=== PATIENT | female | born 1970 | race Caucasian/White ===

== ENCOUNTER → 2017-03-04 | Day surgery (SDC) | payer MEDICARE, OTHER ==
[~2017-03-04] MED LIST: HYDR-2768 PO; LACTATED RINGER'S 1000 ML INJ 1,000 ML ONE; LISI-360 PO; LIVA4TAB OR; PROPOFOL 500 MG/50 ML BTL IV ONE; SERO100T; VIST50CA PO; WELL150T PO
--- NOTE | 2017-03-04 09:06 | GIPROC ---
[facility] [address] [facility], [address] EGD PROCEDURE REPORT EXAM DATE: 03/04/2017 PATIENT NAME: Dewayne Muller MR #: [id number] BIRTHDATE: 1970 ATTENDING: Nba Solorzano MD ORDER #: [id number] BASKET PERSON: Dorcas STATUS: outpatient INDICATIONS: The patient is a 47 yr old female here for an EGD due to heartburn and history of esophageal reflux PROCEDURE PERFORMED: EGD w/ biopsy MEDICATIONS: None and Per Anesthesia. TOPICAL ANESTHETIC: none CONSENT: The patient understands the risks and benefits of the procedure and understands that these risks include, but are not limited to: sedation, allergic reaction, infection, perforation and/or bleeding. Alternative means of evaluation and treatment include, among others: physical exam, x-rays, and/or surgical intervention. The patient elects to proceed with this endoscopic procedure. medical equipment was checked for proper function. Hand hygiene and appropriate measures for infection prevention was taken. After the risks, benefits and alternatives of the procedure were thoroughly explained, Informed consent was verified, confirmed and timeout was successfully executed by the treatment team. The patient was anesthetized with anesthesia and the EC-[id number] ([id number]) endoscope was introduced through the mouth and advanced to the second portion of the duodenum. Mild gastritis biopsy for H.pylor. GE junction irregular z line, biopsy done x2. Retroflexed views revealed a hiatal hernia The gastroscope was then slowly withdrawn and removed. STOMACH: There was mild gastritis in the gastric antrum. ADVERSE EVENTS: There were no complications. IMPRESSIONS: 1. There was mild gastritis in the gastric antrum 2. Retroflexed views revealed a hiatal hernia RECOMMENDATIONS: 1. Await biopsy results. Biopsy results will not be ready for 7-10 days. If you don't hear from us in two weeks, call our office for biopsy results. 2. Continue PPI PATIENT CONDITION: fair DISPOSITION: Home REPEAT EXAM: NONE Nba Solorzano MD eSigned: Nba Solorzano MD 03/04/2017 9:05 AM cc: Wilmar Solorzano MD
== END | disposition home or self-care (01) ==
LOC: ESDC 07:09
PROVIDERS: ATTEND Surgery
DX: R12 Heartburn (principal); K21.9 Gastro-esophageal reflux disease without esophagitis; K29.70 Gastritis, unspecified, without bleeding; K22.9 Disease of esophagus, unspecified; K44.9 Diaphragmatic hernia without obstruction or gangrene
CPT/HCPCS: 00731; 43239; 88305; J3010; J7120

== ENCOUNTER 2017-04-23 14:45 | Emergency (ER) | payer MEDICARE, OTHER ==
[~2017-04-23 14:45] MED LIST changes: -LACTATED RINGER'S 1000 ML INJ 1,000 ML ONE; -PROPOFOL 500 MG/50 ML BTL IV ONE
[2017-04-23 15:00] VITALS: BP 101/58; PULSE 87; RESP 18; TEMP 98.3; O2SAT 97
[2017-04-23 17:34] VITALS: BP 112/55; PULSE 78; RESP 18; O2SAT 99
[2017-04-23] MEDS ORDERED: NIAC500T5 PO (17:45)
[2017-04-23] MEDS ORDERED: SITA1TAB2 PO (17:45)
[2017-04-23] MEDS ORDERED: LISI-515 PO (17:45)
[2017-04-23] MEDS ORDERED: ATOR40TA16 PO (17:45)
[2017-04-23] MEDS ORDERED: ALLO100T PO (17:45)
[2017-04-23] MEDS ORDERED: VITA80003 (17:45)
[2017-04-23] MEDS ORDERED: TRIL300T PO (17:45)
[2017-04-23] MEDS ORDERED: CHOL100025 CHEW (17:45)
[2017-04-23] MEDS ORDERED: MELO15TA20 PO (17:45)
[2017-04-23] MEDS ORDERED: MULTTAB67 PO (17:45)
[2017-04-23] MEDS ORDERED: LINA145C PO (17:45)
[2017-04-23] MEDS ORDERED: FISH1000 PO (17:45)
[2017-04-23] MEDS ORDERED: BIOTCAP PO (17:45)
[2017-04-23] MEDS ORDERED: CYMB30CA PO (17:45)
[2017-04-23] MEDS ORDERED: ASPI-516 CHEW (17:45)
[2017-04-23] MEDS ORDERED: METF500T PO (17:45)
[2017-04-23] MEDS ORDERED: L-THPOW PO (17:45)
[2017-04-23] MEDS ORDERED: GABA300C5 PO (17:45)
[2017-04-23 18:00] LABS: AUTOMATED NEUTROPHIL # 11.7 TH/MM3 (1.8-7.7); BASOPHIL # 0.1 TH/MM3 (0-0.2); BASOPHIL % 0.6 % (0.0-2.0); EOSINOPHIL # 0.1 TH/MM3 (0-0.4); EOSINOPHIL % 0.9 % (0.0-4.0); HEMATOCRIT 45.2 % (35.0-46.0); HEMOGLOBIN 15.2 GM/DL (11.6-15.3); LYMPHOCYTE # 3.2 TH/MM3 (1.0-4.8); MEAN CELL VOLUME 86.3 FL (80.0-100.0); MEAN CORPUSCULAR HEMOGLOBIN 29.1 PG (27.0-34.0); MEAN CORPUSCULAR HGB CONC 33.7 % (32.0-36.0); MEAN PLATELET VOLUME 9.4 FL (7.0-11.0); MONO % 6.2 % (0.0-8.0); NEUT % 72.3 % (16.0-70.0); PLATELET COUNT 367 TH/MM3 (150-450); RED BLOOD COUNT 5.24 MIL/MM3 (4.00-5.30); RED CELL DISTRIBUTION WIDTH 14.8 % (11.6-17.2); WHITE BLOOD COUNT 16.2 TH/MM3 (4.0-11.0)
[2017-04-23] MEDS ORDERED: SODIUM CHLORIDE 0.9% FLUSH 10 ML FLUSH IVF PRN (18:00)
--- NOTE | 2017-04-23 18:02 | PD ---
HPI Chief Complaint: Chest Pain Time Seen by Provider: 17:49 Travel History International Travel<30 days: No Contact w/Intl Traveler<30days: No Traveled to known affect area: No History of Present Illness HPI 47-year-old female with history of diabetes, hypertension, hyperlipidemia, presents emergency department complaining of midsternal chest pain with radiation to the left breast described as sharp and 5/10 as she was showering this afternoon at 1230p. Patient says The pain was constant until approximately 5p. Denies any palliative factors. States that she had associated shortness of breath. Denies nausea or vomiting. Since she was seen by her malt roaster, Dr. cardenas where she had a stress test for an upcoming gastric bypass surgery. Patient states that this was normal at this time. She denies any history of cardiac, pulmonary or kidney disease processes. Patient says that she is only concerned about her labs. Says that if her labs are normal she wants to go home. No family history of cardiac. PFSH Past Medical History Anxiety: Yes Depression: Yes (ADMITTED TO [facility] WITHOUT A PLAN) Cancer: No High Cholesterol: Yes Diabetes: Yes Patient Takes Glucophage: Yes (04/23/17 @0900) Endocrine: No Genitourinary: No Hypertension: Yes Immune Disorder: No Musculoskeletal: No Neurologic: No Psychiatric: Yes Reproductive: No Respiratory: No Sleep Apnea: Yes Triglycerides - High: Yes ?: Unknown LMP: february 2017 : 2 Para: 0 Miscarriage: 2 Dilation and Curettage (D&C): Yes Past Surgical History Surgical History: No Previous Surgery Social History Alcohol Use: Yes (SOCIALLY ) Tobacco Use: No Substance Use: No Allergies-Medications (Allergen,Severity, Reaction): Coded Allergies: cephalexin (Unverified Allergy, Mild, HIVES, 04/23/17) Reported Meds & Prescriptions Reported Meds & Active Scripts Active Reported Cymbalta DR (Duloxetine HCl) 30 Mg Capdr 30 Mg PO DAILY Vitamin A 8,000 Unit Capsule Linzess (Linaclotide) 145 Mcg Cap 145 Mcg PO DAILY Gabapentin 300 Mg Cap 300 Mg PO TID Biotin 5 Mg Cap 5 Mg PO DAILY Niacin 500 Mg Tab 500 Mg PO DAILY Allopurinol 100 Mg Tab 100 Mg PO DAILY Januvia (Sitagliptin Phosphate) 100 Mg Tab 100 Mg PO DAILY L-Thyroxine (Bulk) (Levothyroxine (Bulk)) Bulk Pow 100 Mcg PO DAILY Meloxicam 15 Mg Tab 15 Mg PO DAILY Lisinopril 20 Mg Tab 20 Mg PO DAILY Atorvastatin (Atorvastatin Calcium) 40 Mg Tab 40 Mg PO HS Multiple Vitamin 1 Tab 1 Tab PO DAILY Aspirin 81 Mg Chew 81 Mg CHEW DAILY Trileptal (Oxcarbazepine) 300 Mg Tab 300 Mg PO BID Metformin (Metformin HCl) 500 Mg Tab 500 Mg PO BIDPC Vitamin D3 (Cholecalciferol) 1,000 Unit Chew 2,000 Units CHEW DAILY Fish Oil ([place]-3 Fatty Acids) 340 Mg-1,000 Mg Cap PO HS Review of Systems Except as stated in HPI: all other systems reviewed are Neg Physical Exam Narrative GENERAL: Well-developed, well-nourished in no apparent distress, resting comfortably in bed SKIN: Focused skin assessment warm/dry. HEAD: Atraumatic. Normocephalic. NECK: Trachea midline. No JVD. CARDIOVASCULAR: Regular rate and rhythm. No murmur appreciated. RESPIRATORY: No accessory muscle use. Clear to auscultation. Breath sounds equal bilaterally. GASTROINTESTINAL: Abdomen soft, nondistended. Mild tenderness palpation of the mid epigastric region without masses or organomegaly MUSCULOSKELETAL: No obvious deformities. No clubbing. No cyanosis. No edema. NEUROLOGICAL: Awake and alert. No obvious cranial nerve deficits. Motor grossly within normal limits. Normal speech. PSYCHIATRIC: Appropriate mood and affect; insight and judgment normal. Data Data Last Documented VS Vital Signs Date Time Temp Pulse Resp B/P (MAP) Pulse Ox O2 Delivery O2 Flow Rate FiO2 04/23/17 19:10 04/23/17 18:10 75 15 98 04/23/17 18:06 Room Air 04/23/17 15:00 98.3 Orders Orders Electrocardiogram (04/23/17 14:53) Basic Metabolic Panel (Bmp) (04/23/17 17:49) Ckmb (Isoenzyme) Profile (04/23/17 17:49) Complete Blood Count With Diff (04/23/17 17:49) Magnesium (Mg) (04/23/17 17:49) Prothrombin Time / Inr (Pt) (04/23/17 17:49) Act Partial Throm Time (Ptt) (04/23/17 17:49) Troponin I (04/23/17 17:49) Ecg Monitoring (04/23/17 17:49) Bilateral Bp Monitoring (04/23/17 17:49) Iv Access Insert/Monitor (04/23/17 17:49) Oximetry (04/23/17 17:49) Oxygen Administration (04/23/17 17:49) Sodium Chloride 0.9% Flush (Ns Flush) (04/23/17 18:00) Chest, Pa & Lat (04/23/17 17:49) Comprehensive Metabolic Panel (04/23/17 18:10) Lipase (04/23/17 18:10) Ed Discharge Order (04/23/17 19:08) Labs Laboratory Tests Test 04/23/17 15:13 04/23/17 18:13 White Blood Count 16.2 TH/MM3 Red Blood Count 5.24 MIL/MM3 Hemoglobin 15.2 GM/DL Hematocrit 45.2 % Mean Corpuscular Volume 86.3 FL Mean Corpuscular Hemoglobin 29.1 PG Mean Corpuscular Hemoglobin Concent 33.7 % Red Cell Distribution Width 14.8 % Platelet Count 367 TH/MM3 Mean Platelet Volume 9.4 FL Neutrophils (%) (Auto) 72.3 % Lymphocytes (%) (Auto) 20.0 % Monocytes (%) (Auto) 6.2 % Eosinophils (%) (Auto) 0.9 % Basophils (%) (Auto) 0.6 % Neutrophils # (Auto) 11.7 TH/MM3 Lymphocytes # (Auto) 3.2 TH/MM3 Monocytes # (Auto) 1.0 TH/MM3 Eosinophils # (Auto) 0.1 TH/MM3 Basophils # (Auto) 0.1 TH/MM3 CBC Comment DIFF FINAL Differential Comment Prothrombin Time 9.7 SEC Prothromb Time International Ratio 1.0 RATIO Activated Partial Thromboplast Time 26.7 SEC Blood Urea Nitrogen 20 MG/DL 21 MG/DL Creatinine 1.26 MG/DL 1.07 MG/DL Random Glucose 80 MG/DL 91 MG/DL Calcium Level 10.1 MG/DL 9.7 MG/DL Magnesium Level 1.8 MG/DL Sodium Level 136 MEQ/L 135 MEQ/L Potassium Level 4.3 MEQ/L 4.7 MEQ/L Chloride Level 102 MEQ/L 102 MEQ/L Carbon Dioxide Level 21.5 MEQ/L 26.4 MEQ/L Anion Gap 13 MEQ/L 7 MEQ/L Estimat Glomerular Filtration Rate 45 ML/MIN 55 ML/MIN Total Creatine Kinase 96 U/L Troponin I LESS THAN 0.02 NG/ML Total Protein 7.4 GM/DL Albumin 3.7 GM/DL Alkaline Phosphatase 76 U/L Aspartate Amino Transf (AST/SGOT) 14 U/L Alanine Aminotransferase (ALT/SGPT) 32 U/L Total Bilirubin 0.3 MG/DL Lipase 184 U/L MDM Medical Decision Making Medical Screen Exam Complete: Yes Emergency Medical Condition: Yes Differential Diagnosis NSTEMI, STEMI, angina, unstable angina, generalized deconditioning Narrative Course 47-year-old female with history of diabetes, hypertension, hyperlipidemia, presents emergency department complaining of midsternal chest pain with radiation to the left breast described as sharp and 5/10 as she was showering this afternoon at 1230p. Patient says The pain was constant until approximately 5p. Denies any palliative factors. States that she had associated shortness of breath. Denies nausea or vomiting. Since she was seen by her malt roaster, Dr. cardenas where she had a stress test for an upcoming gastric bypass surgery. Patient states that this was normal at this time. She denies any history of cardiac, pulmonary or kidney disease processes. Patient says that she is only concerned about her labs. Says that if her labs are normal she wants to go home. Says that she was treated for an upper respiratory infection in February but this completely resolved. She denies cough or congestion. Vital signs stable. Labs and imaging studies ordered and sent EKG shows sinus rhythm without STEMI changes. Physical exam essentially unremarkable. Last Impressions Chest X-Ray 04/23/17 1129 Signed Impressions: Service Date/Time: Sunday, April 23, 2017 18:02 - CONCLUSION: No evidence of acute cardiopulmonary disease. Kd Montes De Oca MD Advised patient should be admitted to the chest pain center. After further discussion patient states that she has an appointment with Dr. cardenas on Wednesday. She insists that her pain is from her hiatal hernia. Says that she prefers to follow-up with him and avoid an admission. I discussed the case with my attending, Dr. Judd and he recommended pt needs to have very clear understanding of the risks versus benefits. Patient will not leave AMA but she is advised to return for worsening or persistent symptoms. She is welcome to return at any point if she changes her mind. She is discharged to follow up with her malt roaster. Diagnosis Primary Impression: Chest pain Qualified Codes: R07.89 - Other chest pain Referrals: Salesforce Administrator Additional Instructions: Follow-up with Dr. cardenas as discussed on Wednesday. You may return at any point for further evaluation of your chest pain. If you develop increased pain, shortness breath, nausea return to the emergency department. We discussed the risk versus benefits of leaving without further evaluation. Disposition: 01 DISCHARGE HOME Condition: Stable Shirley Peterson Apr 23, 2017 18:02
[2017-04-23 18:10] VITALS: BP 110/65; PULSE 75; RESP 15; O2SAT 98
[2017-04-23 18:13] LABS: PROTHROMBIN TIME - PATIENT 9.7 SEC (9.8-11.6)
--- NOTE | 2017-04-23 18:16 | RADRPT ---
EXAM DATE/TIME: 04/23/2017 18:02 [facility] COMPARISON: No previous studies available for comparison. INDICATIONS : Chest pain and shortness of breath. MEDICAL HISTORY : None. SURGICAL HISTORY : None. ENCOUNTER: Initial ACUITY: 1 day PAIN SCORE: 8/10 LOCATION: Left upper chest FINDINGS: PA and lateral views of the chest demonstrate the lungs to be symmetrically aerated without evidence of mass, infiltrate or effusion. The cardiomediastinal contours are unremarkable. Osseous structure s are intact. CONCLUSION: No evidence of acute cardiopulmonary disease. Kd Montes De Oca MD on April 23, 2017 at 18:13 Board Certified Radiologist. This report was verified electronically.
[2017-04-23 18:31] LABS: BICARBONATE 21.5 MEQ/L (21.0-32.0); BLOOD UREA NITROGEN 20 MG/DL (7-18); CALCIUM 10.1 MG/DL (8.5-10.1); CHLORIDE 102 MEQ/L (98-107); CREATININE 1.26 MG/DL (0.50-1.00); GLOMERULAR FILTRATION RATE 45 ML/MIN (>89); GLUCOSE,RANDOM 80 MG/DL (74-106); MAGNESIUM 1.8 MG/DL (1.5-2.5); SODIUM (NA) 136 MEQ/L (136-145)
[2017-04-23 18:35] LABS: TROPONIN I LESS THAN 0.02 NG/ML (0.02-0.05)
[2017-04-23 18:38] LABS: ALBUMIN 3.7 GM/DL (3.4-5.0); AST (GOT) 14 U/L (15-37); BICARBONATE 26.4 MEQ/L (21.0-32.0); BLOOD UREA NITROGEN 21 MG/DL (7-18); CALCIUM 9.7 MG/DL (8.5-10.1); CHLORIDE 102 MEQ/L (98-107); CREATININE 1.07 MG/DL (0.50-1.00); GLOMERULAR FILTRATION RATE 55 ML/MIN (>89); GLUCOSE,RANDOM 91 MG/DL (74-106); SODIUM (NA) 135 MEQ/L (136-145)
[2017-04-23 18:40] LABS: ALT (GPT) 32 U/L (10-53)
[2017-04-23 18:42] LABS: ALKALINE PHOSPHATASE 76 U/L (45-117); TOTAL BILIRUBIN ADULT 0.3 MG/DL (0.2-1.0); TOTAL PROTEIN 7.4 GM/DL (6.4-8.2)
--- NOTE | 2017-04-24 17:43 | EKG ---
Date Performed: 04/23/2017 Time Performed: 14:53:01 PTAGE: 47 years EKG: Sinus rhythm NORMAL ECG Since PREVIOUS TRACING , no significant change noted PREVIOUS TRACING DOCTOR: Anthony Rae Interpretating Date/Time 04/24/2017 17:42:27
== END 2017-04-23 19:10 | disposition home or self-care (01) ==
LOC: NEPC 14:45
DX: R07.89 Other chest pain (principal); F32.9 Major depressive disorder, single episode, unspecified; E78.00 Pure hypercholesterolemia, unspecified; E11.9 Type 2 diabetes mellitus without complications; I10 Essential (primary) hypertension; Z88.1 Allergy status to other antibiotic agents
CPT/HCPCS: 71046; 80048; 80053; 82550; 83690; 83735; 84484; 85025; 85610; 85730; 93005

== ENCOUNTER 2017-05-19 05:23 | Inpatient (IN) | payer MEDICARE, OTHER ==
[~2017-05-19] VITALS: Ht 172.7 cm; Wt 119.5 kg
[~2017-05-19 05:23] MED LIST changes: +ALLO100T PO; +ASPI-516 CHEW; +ATOR40TA16 PO; +BIOTCAP PO; +CHOL100025 CHEW; +CYMB30CA PO; +DULO20 PO; +FISH1000 PO; -HYDR-2768 PO; +L-THPOW PO; +LINA145C PO; -LISI-360 PO; +LISI-515 PO; -LIVA4TAB OR; +MELO15TA20 PO; +METF500T PO; +MULTTAB67 PO; +NIAC500T5 PO; -SERO100T; +SITA1TAB2 PO; +TRIL300T PO; -VIST50CA PO; +VITA80003 PO; -WELL150T PO
[2017-05-19] MEDS ORDERED: LACTATED RINGER'S 1000 ML IV PRN (06:45)
[2017-05-19] MEDS ORDERED: CHLORHEXIDINE GLUCONATE 2 % 1 PACK (2 CLOTHS) TOPICAL PRN (06:45)
[2017-05-19] MEDS ORDERED: METOPROLOL TARTRATE 25 MG TAB PO PRN (06:45)
[2017-05-19] MEDS ORDERED: ONDANSETRON HCL 4 MG/2 ML VIAL IV PUSH SCH (06:45)
[2017-05-19] MEDS ORDERED: VANCOMYCIN 1,500 MG/NS 500 ML (for 85-99 kg) IV SCH ×2 (06:45)
[2017-05-19] MEDS ORDERED: metroNIDAZOLE 500 MG INJ 100 ML IV SCH (06:45)
[2017-05-19] MEDS ORDERED: ACETAMINOPHEN 1000 MG/100 ML 100 ML IV SCH (06:45)
[2017-05-19] MEDS ORDERED: SODIUM CHLORID 0.9% 500 ML IV PRN (06:45)
[2017-05-19] MEDS ORDERED: SCOPOLAMINE 1.5 MG PATCH T-DERMAL SCH (06:45)
[2017-05-19] MEDS ORDERED: POVIDONE IODINE 5% (ANTISEPSIS KIT) 4 APPLICATIONS EACH NARE PRN (06:45)
[2017-05-19] MEDS ORDERED: APREPITANT 40 MG CAP PO SCH (06:45)
[2017-05-19] MEDS ORDERED: BUPIVACAINE/EPINEPHRINE 0.25% 50 ML VIAL ONE (07:02)
[2017-05-19] MEDS ORDERED: FLAV3.7O (07:43)
[2017-05-19] MEDS ORDERED: CINN500C2 PO ×2 (07:43)
[2017-05-19] MEDS ORDERED: PROT40TA PO (07:43)
[2017-05-19] MEDS ORDERED: diphenhydrAMINE HCL ELIXIR 12.5 MG/5 ML CUP PO PRN (10:15)
[2017-05-19] MEDS ORDERED: SODIUM CHLORIDE 0.9% FLUSH 10 ML FLUSH IV FLUSH PRN (10:15)
[2017-05-19] MEDS ORDERED: diphenhydrAMINE HCL 50 MG/ML VIAL IV PUSH PRN (10:15)
[2017-05-19] MEDS ORDERED: NALOXONE HCL 0.4 MG/ML AMP IV PUSH PRN (10:15)
[2017-05-19] MEDS ORDERED: ACETAMINOPHEN 325MG/HYDROcodone 7.5MG/15ML UDC PO PRN ×2 (10:15)
[2017-05-19] MEDS ORDERED: MORPHINE SULFATE 30 MG/30 ML PCA IV SCH (10:15)
[2017-05-19] MEDS ORDERED: DEXTROSE 50% IN WATER 50 ML VIAL(D50) IV PUSH PRN (10:15)
[2017-05-19] MEDS ORDERED: ENALAPRILAT 1.25 MG/ML VIAL IV PUSH PRN (10:15)
[2017-05-19] MEDS ORDERED: GLUCAGON 1 MG/ML VIAL OTHER PRN (10:15)
[2017-05-19] MEDS ORDERED: ONDANSETRON HCL 4 MG/2 ML VIAL IV PUSH PRN (10:15)
[2017-05-19] MEDS ORDERED: Post-op Orders (for Pharmacy) OTHER ONE (10:15)
[2017-05-19] MEDS ORDERED: DO NOT ADM ANY ANTICOAGULANT DRUGS PRN (10:26)
[2017-05-19] MEDS ORDERED: MIDAZOLAM HCL 2 MG/2 ML VIAL ONE (10:30)
--- NOTE | 2017-05-19 10:33 | MP ---
cc: Wilmar Denney MD DATE OF OPERATION: 05/19/2017 DATE OF : 1970 DATE OF OPERATION: 05/19/2017. PREOPERATIVE DIAGNOSIS: Morbid obesity with a BMI of 40, complicated by essential hypertension, type 2 diabetes, hypercholesterolemia. POSTOPERATIVE DIAGNOSES: 1. Morbid obesity with a BMI of 40, complicated by essential hypertension, type 2 diabetes, hypercholesterolemia. 2. Right hiatal hernia. PROCEDURE: 1. Laparoscopic Bao-en-Y gastric bypass, 100 cm Bao limb antecolic antegastric. 2. Laparoscopic repair of hiatal hernia. SURGEON: Wilmar Denney MD ANESTHESIA: General endotracheal anesthesia. ESTIMATED BLOOD LOSS: Scant. FINDINGS: 1. Fatty liver. 2. Moderate-sized hiatal hernia. SPECIMENS: None. COMPLICATIONS: None. OPERATIVE PROCEDURE: The patient was given prophylactic antibiotic in pre-op holding. She was taken to the operating room and placed on the operating table in supine position. Bilateral sequential inflation devices were placed on the lower extremities. General anesthesia was instituted. A Broussard catheter was placed. The abdomen was prepped and draped in a sterile fashion. The supraumbilical region was anesthetized with 0.5% Marcaine with epinephrine approximately three fingerbreadths above the umbilicus. A skin incision was made to the left of the umbilicus. A 12 mm Optiview port was placed under direct vision. A pneumoperitoneum was created. Under direct vision one 5 mm right upper quadrant port, one 12 mm right upper quadrant port, as well as one 12 mm left upper quadrant and two 5 mm left upper quadrant ports were placed. Prior to placement of all ports the skin and peritoneum was anesthetized with 0.5% Marcaine with epinephrine. The patient was placed in reverse Trendelenburg position. A Bruna-Flex retractor was placed and the liver was retracted. The gastroesophageal junction was identified. The angle of His was taken down. A moderate-sized hiatal hernia was identified. The left crura of the diaphragm was dissected as well as the right crura. The GE junction was mobilized into the abdominal cavity, the hernia sac was excised. The jarrell of the diaphragm was approximated with 0 silk suture in a [id number] manner. The lesser sac was entered on the lesser curvature approximately 5 cm distal to the gastroesophageal junction. The stomach was divided in this region with an Endo BROOK 3.5 mm load. A gastric pouch was created angled towards the angle of His using an additional three firings of the Endo BROOK 3.5 mm load. A 30-40 mL pouch was created. The staple line of the gastric remnant was covered with omentum. Attention was then focused on the gastrocolic ligament, and this was opened widely using the Harmonic scalpel. The transverse mesocolon was identified and was opened using the Harmonic scalpel creating a Y-defect. The ligament of Treitz was identified and brought into view. A point 50 cm distal to the ligament of Treitz was identified and the small bowel was transected in this region. The distal segment was run for a distance of 100 cm. At this point using the biliopancreatic limb an enterostomy was created with an Endo BROOK vascular load. This defect was closed with 2-0 Vicryl running in two layers. The proximal staple line was then brought up into the upper abdomen. An enterotomy was created. A gastrotomy was created. A gastrojejunostomy was created with an Endo BROOK 3.5 mm load creating a stoma of approximately 2 cm. This defect was closed in two layers using 2-0 Vicryl. Prior to placement of the second wave the anastomosis was tested with methylene blue. There was leakage of methylene blue along the suture lines; this was reinforced with a second wave of running 2-0 Vicryl with no further leak. Tisseel was then placed over the anastomosis. A 10 mm flat Gurmeet-Gaines drain was then placed posterior to the gastrojejunal anastomosis as well as the jejunostomy. The upper abdomen was irrigated with saline. The liver retractor was then removed. The pneumoperitoneum was released. All ports were removed. The LITO was secured to the abdominal wall using 2-0 silk. All skin incisions were closed with 4-0 PDS. The abdomen was cleaned. A sterile dressing was placed. The patient was awakened and taken to the recovery room stable. MD MIKE Acosta/JODI , 10:18 AM , 10:31 AM
[2017-05-19] MEDS ORDERED: *morphine SULFATE 4 MG/ML PERIprocedure ONLY ONE (10:37)
[2017-05-19] MEDS ORDERED: *MEPERIDINE 25 MG INJ VIAL PERIprocedural Use ONLY ONE (10:40)
[2017-05-19] MEDS: 1/2 NS + KCL 20 MEQ INJ 1,000 ML IV SCH ×2 (11:43→17:44)
[2017-05-19] MEDS: RESP: ALBUTEROL 2.5 MG/3 ML NEB (SCH) INH ×3 (11:56→20:07)
[2017-05-19] MEDS: METOCLOPRAMIDE HCL 10 MG/2 ML VIAL IV PUSH SCH ×2 (11:56→17:42)
[2017-05-19] MEDS ORDERED: LACTATED RINGER'S 1000 ML INJ 1,000 ML IV ONE (12:00)
[2017-05-19] MEDS ORDERED: LIDOCAINE HCL 1% PF 5 ML SYRINGE OTHER ONE (12:00)
[2017-05-19] MEDS ORDERED: NEOSTIGMINE 5 MG/5 ML SYRINGE IV PUSH ONE (12:00)
[2017-05-19] MEDS ORDERED: DEXAMETHASONE SOD PHOS 4 MG/ML VIAL IV ONE (12:00)
[2017-05-19] MEDS: INSULIN NovoLIN REGULAR SUPPLEMENTAL SCALE SQ SCH ×3 (12:00→21:00)
[2017-05-19] MEDS ORDERED: ROCURONIUM INJ 50 MG/5 ML SYRINGE IV PUSH ONE (12:00)
[2017-05-19] MEDS ORDERED: PROPOFOL 200 MG/20 ML AMP IV ONE (12:00)
[2017-05-19] MEDS ORDERED: ONDANSETRON HCL 4 MG/2 ML VIAL IV ONE (12:00)
[2017-05-19] MEDS ORDERED: GLYCOPYRROLATE 1 MG/5 ML SYRINGE IV PUSH ONE (12:00)
[2017-05-19] MEDS: ACETAMINOPHEN 1000 MG/100 ML 100 ML IV SCH ×2 (12:56→18:30)
[2017-05-19] MEDS: PCA - TOTAL MG MORPHINE DELIVERED PER SHIFT SCH ×2 (14:00→21:24)
[2017-05-19] MEDS: ENOXAPARIN SODIUM 40 MG/0.4 ML SYRINGE SQ SCH (14:37)
[2017-05-19 15:45] VITALS: O2SAT 92
[2017-05-19 16:00] VITALS: BP 111/62; PULSE 88; RESP 16; TEMP 97.6; O2SAT 91
[2017-05-19] MEDS: metroNIDAZOLE 500 MG INJ 100 ML IV SCH (16:50)
[2017-05-19 20:00] VITALS: BP 115/64; PULSE 91; RESP 19; TEMP 98; O2SAT 95
[2017-05-19 20:07] VITALS: O2SAT 95
[2017-05-19] MEDS: SODIUM CHLORIDE 0.9% FLUSH 10 ML FLUSH IV FLUSH SCH (21:00)
[2017-05-19] MEDS: VANCOMYCIN INJ 1,000 MG in SODIUM CHLOR 0.9% 250 ML INJ 250 ML IV SCH (21:30)
[2017-05-20] VITALS: BP 108/68; PULSE 86; RESP 19; TEMP 97.2; O2SAT 95
[2017-05-20] MEDS: metroNIDAZOLE 500 MG INJ 100 ML IV SCH ×2 (00:06→08:49)
[2017-05-20] MEDS: METOCLOPRAMIDE HCL 10 MG/2 ML VIAL IV PUSH SCH ×2 (00:06→05:42)
[2017-05-20] MEDS: ACETAMINOPHEN 1000 MG/100 ML 100 ML IV SCH (01:08)
[2017-05-20] MEDS: RESP: ALBUTEROL 2.5 MG/3 ML NEB (SCH) INH ×5 (03:17→16:34)
[2017-05-20 04:00] VITALS: BP 109/55; PULSE 77; RESP 19; TEMP 98.6; O2SAT 93
[2017-05-20] MEDS: 1/2 NS + KCL 20 MEQ INJ 1,000 ML IV SCH ×2 (05:42→13:22)
[2017-05-20] MEDS: PCA - TOTAL MG MORPHINE DELIVERED PER SHIFT SCH (05:43)
[2017-05-20 06:03] LABS: BASOPHIL % 0.2 % (0.0-2.0); EOSINOPHIL % 0.1 % (0.0-4.0); HEMATOCRIT 36.9 % (35.0-46.0); HEMOGLOBIN 12.1 GM/DL (11.6-15.3); LYMPH % 17.9 % (9.0-44.0); LYMPHOCYTE # 2.1 TH/MM3 (1.0-4.8); MEAN CELL VOLUME 87.5 FL (80.0-100.0); MEAN CORPUSCULAR HEMOGLOBIN 28.7 PG (27.0-34.0); MEAN CORPUSCULAR HGB CONC 32.8 % (32.0-36.0); MEAN PLATELET VOLUME 9.2 FL (7.0-11.0); MONO % 6.2 % (0.0-8.0); MONOCYTE # 0.7 TH/MM3 (0-0.9); NEUT % 75.6 % (16.0-70.0); PLATELET COUNT 263 TH/MM3 (150-450); RED BLOOD COUNT 4.21 MIL/MM3 (4.00-5.30); RED CELL DISTRIBUTION WIDTH 15.2 % (11.6-17.2); WHITE BLOOD COUNT 11.9 TH/MM3 (4.0-11.0)
[2017-05-20 06:35] LABS: BICARBONATE 27.6 MEQ/L (21.0-32.0); CALCIUM 8.3 MG/DL (8.5-10.1); CREATININE 0.65 MG/DL (0.50-1.00); MAGNESIUM 1.8 MG/DL (1.5-2.5)
[2017-05-20 08:00] VITALS: BP 126/63; PULSE 78; RESP 16; TEMP 97.9; O2SAT 91
[2017-05-20] MEDS: INSULIN NovoLIN REGULAR SUPPLEMENTAL SCALE SQ SCH ×3 (08:00→16:27)
[2017-05-20 08:34] VITALS: O2SAT 92
[2017-05-20] MEDS: VANCOMYCIN INJ 1,000 MG in SODIUM CHLOR 0.9% 250 ML INJ 250 ML IV SCH (08:49)
[2017-05-20] MEDS: PANTOPRAZOLE SOD 40 MG DELAYED RELEASE TAB PO SCH ×2 (08:50→08:55)
[2017-05-20] MEDS: SODIUM CHLORIDE 0.9% FLUSH 10 ML FLUSH IV FLUSH SCH (08:50)
[2017-05-20] MEDS ORDERED: DULoxetine HCl DR 30 MG CAP PO SCH (10:00)
[2017-05-20] MEDS ORDERED: LEVOTHYROXINE SODIUM 100 MCG TAB PO SCH (10:00)
[2017-05-20] MEDS ORDERED: OXcarbazepine 300 MG TAB PO SCH (10:00)
[2017-05-20 12:00] VITALS: BP 128/76; PULSE 87; RESP 17; TEMP 98.3; O2SAT 90
[2017-05-20] MEDS ORDERED: METOCLOPRAMIDE HCL 10 MG/2 ML VIAL IV PUSH PRN (12:00)
[2017-05-20] MEDS: ENOXAPARIN SODIUM 40 MG/0.4 ML SYRINGE SQ SCH (13:22)
[2017-05-20 16:00] VITALS: BP 108/65; PULSE 84; RESP 16; TEMP 98.2; O2SAT 92
--- NOTE | 2017-05-20 16:09 | HHI.PR ---
Subjective Subjective Notes Doing well Excellent pain control Tolerating PO fluids Denies GI complaints Objective Vitals/I&O Vital Signs Date Time Temp Pulse Resp B/P (MAP) Pulse Ox O2 Delivery O2 Flow Rate FiO2 05/20/17 12:00 98.3 87 17 128/76 (93) 90 05/20/17 08:34 21 05/19/17 12:15 Nasal Cannula 3 Labs Laboratory Tests Test 05/20/17 04:22 White Blood Count 11.9 Red Blood Count 4.21 Hemoglobin 12.1 Hematocrit 36.9 Mean Corpuscular Volume 87.5 Mean Corpuscular Hemoglobin 28.7 Mean Corpuscular Hemoglobin Concent 32.8 Red Cell Distribution Width 15.2 Platelet Count 263 Mean Platelet Volume 9.2 Neutrophils (%) (Auto) 75.6 Lymphocytes (%) (Auto) 17.9 Monocytes (%) (Auto) 6.2 Eosinophils (%) (Auto) 0.1 Basophils (%) (Auto) 0.2 Neutrophils # (Auto) 9.0 Lymphocytes # (Auto) 2.1 Monocytes # (Auto) 0.7 Eosinophils # (Auto) 0.0 Basophils # (Auto) 0.0 CBC Comment DIFF FINAL Differential Comment Blood Urea Nitrogen 9 Creatinine 0.65 Random Glucose 89 Calcium Level 8.3 Magnesium Level 1.8 Sodium Level 141 Potassium Level 4.2 Chloride Level 108 Carbon Dioxide Level 27.6 Anion Gap 5 Estimat Glomerular Filtration Rate 97 Cardiovascular: Regular Lungs: Clear Abdomen: Post-op tenderness Extremities: Perfused Wound Wound : Wound Location: Abdomen Appearance: Clean & Dry A/P Assessment and Plan 47yo F POD#1 laparoscopic RNY -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
[2017-05-22] MEDS ORDERED: DULoxetine HCl DR 20 MG CAP PO SCH (09:00)
== END 2017-05-20 18:17 | disposition home or self-care (01) | DRG 621 ==
LOC: HSDI 05:23 → N07B 12:35
PROVIDERS: ADMIT Surgery; ATTEND Surgery
PROC: 0BQT4ZZ Repair Diaphragm, Percutaneous Endoscopic Approach (ICD-10-PCS; 2017-05-19)
PROC: 0T9B70Z Drainage of Bladder with Drainage Device, Via Natural or Artificial Opening (ICD-10-PCS; 2017-05-19)
PROC: 3E1M38Z Irrigation of Peritoneal Cavity using Irrigating Substance, Percutaneous Approach (ICD-10-PCS; 2017-05-19)
PROC: 0D164ZA Bypass Stomach to Jejunum, Percutaneous Endoscopic Approach (ICD-10-PCS; principal; 2017-05-19 08:25)
DX: E66.01 Morbid (severe) obesity due to excess calories (principal); K76.0 Fatty (change of) liver, not elsewhere classified; M50.20 Other cervical disc displacement, unspecified cervical region; I10 Essential (primary) hypertension; E11.9 Type 2 diabetes mellitus without complications; Z68.41 Body mass index [BMI] 40.0-44.9, adult; E78.00 Pure hypercholesterolemia, unspecified; K44.9 Diaphragmatic hernia without obstruction or gangrene; K22.70 Barrett's esophagus without dysplasia; M10.9 Gout, unspecified; E03.9 Hypothyroidism, unspecified; G47.30 Sleep apnea, unspecified; Z87.891 Personal history of nicotine dependence
CPT/HCPCS: 80048; 82948; 83735; 85025; 94150; 94640; 94664; J0131; J1100; J1650; J2175; J2250; J2270; J2405; J2710; J2765; J3010; J3370; J7040; J7050; J7120; J7613; J8501

== ENCOUNTER 2017-05-30 10:14 | Inpatient (IN) | payer MEDICARE, OTHER ==
[~2017-05-30] VITALS: Ht 172.7 cm; Wt 110.0 kg
[~2017-05-30 10:14] MED LIST changes: -ASPI-516 CHEW; -BIOTCAP PO; -CHOL100025 CHEW; -MELO15TA20 PO; -METF500T PO; -MULTTAB67 PO; +PROT40TA PO; -SITA1TAB2 PO; -VITA80003 PO
[2017-05-30 10:30] VITALS: BP 119/72; PULSE 77; RESP 18; TEMP 98.1; O2SAT 99
[2017-05-30] MEDS ORDERED: HYDROmorphone HCL PF 1 MG/ML VIAL IV PUSH ONE (10:30)
--- NOTE | 2017-05-30 10:57 | PD ---
HPI Chief Complaint: Abdominal Pain Time Seen by Provider: 10:21 Travel History International Travel<30 days: No Contact w/Intl Traveler<30days: No Traveled to known affect area: No History of Present Illness HPI 47-year-old female presents emergency department as a transfer for possible small bowel obstructions in the postoperative period from a gastric bypass by Dr. Nguyen performed on 05/19/2017. She received several doses of morphine and Zofran prior to her transfer from [facility], unfortunately only read is available from her CAT scan is there discopathy or was malfunctioning. The patient complains of abdominal cramping throughout her abdomen, she states he got fairly severe last night accompanied with some nonbilious nonbloody emesis. She still states that she is significantly uncomfortable. No chest pain no shortness of breath no diarrhea no constipation. No fevers. PFSH Past Medical History Anxiety: Yes Depression: Yes (ADMITTED TO [place] [facility] WITHOUT A PLAN) Cancer: No Cardiovascular Problems: No High Cholesterol: Yes Diabetes: Yes (NIDDM) Patient Takes Glucophage: No Endocrine: No Gastrointestinal Disorders: Yes (GERD) Genitourinary: No Hiatal Hernia: Yes Hypertension: Yes Immune Disorder: Yes (GOUT) Implanted Vascular Access Dvce: No Medical other: Yes (ELLISON'S ESOPHAGUS) Musculoskeletal: Yes (OA IN BACK) Neurologic: Yes (3 HERNIATED DISK, SCIATICA) Psychiatric: Yes (BIPOLAR, ANXIETY AND DEPRESSION) Reproductive: No Respiratory: Yes (SLEEP APNEA USES CPAP) Sleep Apnea: Yes Thyroid Disease: Yes (HYPO) Triglycerides - High: Yes ?: Not : 2 Para: 0 Miscarriage: 2 Dilation and Curettage (D&C): Yes Past Surgical History Abdominal Surgery: No AICD: No Body Medical Devices: NONE Ear Surgery: No Endocrine Surgery: No Eye Surgery: No Genitourinary Surgery: No Gynecologic Surgery: Yes (D&C) Joint Replacement: No Neurologic Surgery: No Oral Surgery: No Pacemaker: No Thoracic Surgery: No Other Surgery: Yes Social History Alcohol Use: Yes (SOCIALLY ) Tobacco Use: No Substance Use: No Allergies-Medications (Allergen,Severity, Reaction): Coded Allergies: cephalexin (Unverified Allergy, Mild, HIVES, 05/19/17) Reported Meds & Prescriptions Reported Meds & Active Scripts Active Reported Protonix (Pantoprazole Sodium) 40 Mg Tab 40 Mg PO DAILY Cymbalta DR (Duloxetine HCl) 20 Mg Capdr 20 Mg PO EVERY OTHER DAY Cymbalta DR (Duloxetine HCl) 30 Mg Capdr 30 Mg PO DAILY Linzess (Linaclotide) 145 Mcg Cap 145 Mcg PO DAILY Niacin 500 Mg Tab 500 Mg PO DAILY Allopurinol 100 Mg Tab 100 Mg PO DAILY L-Thyroxine (Bulk) (Levothyroxine (Bulk)) Bulk Pow 100 Mcg PO DAILY Lisinopril 20 Mg Tab 20 Mg PO DAILY Atorvastatin (Atorvastatin Calcium) 40 Mg Tab 40 Mg PO HS Trileptal (Oxcarbazepine) 300 Mg Tab 300 Mg PO BID Fish Oil ([place]-3 Fatty Acids) 340 Mg-1,000 Mg Cap 1 Cap PO HS Review of Systems Except as stated in HPI: all other systems reviewed are Neg Physical Exam Narrative GENERAL: Well-developed overweight female appears uncomfortable. SKIN: Focused skin assessment warm/dry. HEAD: Atraumatic. Normocephalic. EYES: Pupils equal and round. No scleral icterus. No injection or drainage. ENT: No nasal bleeding or discharge. Mucous membranes pink and moist. NECK: Trachea midline. No JVD. CARDIOVASCULAR: Regular rate and rhythm. No murmur appreciated. RESPIRATORY: No accessory muscle use. Clear to auscultation. Breath sounds equal bilaterally. GASTROINTESTINAL: Abdomen soft, moderately tender without any rebound or percussive symptoms, moderately distended, tympanic to percussion. MUSCULOSKELETAL: No obvious deformities. No clubbing. No cyanosis. No edema. NEUROLOGICAL: Awake and alert. No obvious cranial nerve deficits. Motor grossly within normal limits. Normal speech. PSYCHIATRIC: Appropriate mood and affect; insight and judgment normal. Data Data Last Documented VS Vital Signs Date Time Temp Pulse Resp B/P (MAP) Pulse Ox O2 Delivery O2 Flow Rate FiO2 05/30/17 10:34 18 05/30/17 10:30 98.1 77 119/72 (88) 99 Orders Orders Consult General Surgery (05/30/17 ) Hydromorphone Pf Inj (Dilaudid Pf Inj) (05/30/17 10:30) (Hub Use Only)Inp Phy Cons/Ref (05/30/17 ) Hydromorphone Pf Inj (Dilaudid Pf Inj) (05/30/17 11:00) Diet Npo (05/30/17 Lunch) Sodium Chlor 0.9% 1000 Ml Inj (Ns 1000 M (05/30/17 11:00) Admit Order (Ed Use Only) (05/30/17 ) Clindamycin 600 Mg/Ns Premix (Cleocin 60 (05/30/17 11:45) MDM Medical Decision Making Medical Screen Exam Complete: Yes Emergency Medical Condition: Yes Differential Diagnosis Bowel obstruction, stricture, postoperative pain, constipation. Narrative Course Patient room to the emergency department, will maintain n.p.o. status, normal saline at 100 cc an hour, blood work reviewed from outside facility CBC fairly unremarkable, BMP fairly unremarkable. CAT scan report does show stricture in the jejunum proximal to the anastomosis site according to the read. Again the CT imaging is not readily available to me. Dr. Nguyen is arrived and after short conversation with [facility] trying to review the images he is examined the patient is sided to take the operating room. Patient did receive an additional dose of Dilaudid 1 mg IV by me. Further management by Dr. Nguyen at this point Diagnosis Primary Impression: SBO (small bowel obstruction) Admitting Information Admitting Physician Requests: Admit Condition: Soy Kingsley MD May 30, 2017 10:57
[2017-05-30] MEDS ORDERED: SODIUM CHLOR 0.9% 1000 ML INJ 1,000 ML IV SCH (11:00)
[2017-05-30] MEDS ORDERED: HYDROmorphone HCL PF 2 MG/ML VIAL IV PUSH ONE (11:00)
[2017-05-30] MEDS ORDERED: CLINDAMYCIN 600 MG/NS PREMIX 50 ML IV ONE (11:45)
[2017-05-30] MEDS ORDERED: BUPIVACAINE/EPINEPHRINE 0.25% 50 ML VIAL ONE (11:47)
[2017-05-30] MEDS ORDERED: METHYLENE BLUE 10 MG/ML VIAL ONE (11:47)
[2017-05-30] MEDS ORDERED: SUCCINYLCHOLINE CHLORIDE 100 MG/5 ML SYRINGE IV PUSH ONE (12:00)
[2017-05-30] MEDS ORDERED: PROPOFOL 200 MG/20 ML AMP IV ONE (12:00)
[2017-05-30] MEDS ORDERED: GLYCOPYRROLATE 1 MG/5 ML SYRINGE IV PUSH ONE (12:00)
[2017-05-30] MEDS ORDERED: LACTATED RINGER'S 1000 ML INJ 1,000 ML IV ONE (12:00)
[2017-05-30] MEDS ORDERED: DEXAMETHASONE SOD PHOS 4 MG/ML VIAL IV ONE (12:00)
[2017-05-30] MEDS ORDERED: ROCURONIUM INJ 50 MG/5 ML SYRINGE IV PUSH ONE (12:00)
[2017-05-30] MEDS ORDERED: CLINDAMYCIN INJ 600 MG in SODIUM CHLORIDE 0.9% INJ 100 ML IV ONE (12:00)
[2017-05-30] MEDS ORDERED: NORMOSOL R INJ 1,000 ML IV ONE (12:00)
[2017-05-30] MEDS ORDERED: LIDOCAINE HCL 1% PF 5 ML SYRINGE OTHER ONE (12:00)
[2017-05-30] MEDS ORDERED: ONDANSETRON HCL 4 MG/2 ML VIAL IV ONE (12:00)
[2017-05-30] MEDS ORDERED: NEOSTIGMINE 5 MG/5 ML SYRINGE IV PUSH ONE (12:00)
[2017-05-30] MEDS ORDERED: ePHEDrine/NS 25 MG/5 ML SYRINGE IV ONE (12:00)
[2017-05-30] MEDS ORDERED: OXYMETAZOLINE HCL 0.05% 15 ML NASAL SPRAY ONE (12:57)
[2017-05-30] MEDS ORDERED: ONDANSETRON HCL 4 MG/2 ML VIAL IV PUSH PRN (14:15)
[2017-05-30] MEDS ORDERED: Post-op Orders (for Pharmacy) XX ONE (14:15)
[2017-05-30] MEDS ORDERED: NALOXONE HCL 0.4 MG/ML AMP IV PUSH PRN (14:15)
[2017-05-30] MEDS ORDERED: ACETAMINOPHEN 325MG/HYDROcodone 7.5MG/15ML UDC PO PRN (14:15)
[2017-05-30] MEDS ORDERED: SODIUM CHLORIDE 0.9% FLUSH 10 ML FLUSH IV FLUSH PRN (14:15)
[2017-05-30] MEDS ORDERED: MAGNESIUM HYDROXIDE SUSP 30 ML CUP PO PRN (14:15)
[2017-05-30] MEDS: SODIUM CHLOR 0.9% 1000 ML INJ 1,000 ML IV SCH (14:30)
[2017-05-30] MEDS ORDERED: MORPHINE SULFATE 4 MG/ML INJ ONE (14:35)
[2017-05-30] MEDS ORDERED: *morphine SULFATE 4 MG/ML PERIprocedure ONLY ONE ×2 (14:39→14:53)
[2017-05-30] MEDS ORDERED: *MEPERIDINE 25 MG INJ VIAL PERIprocedural Use ONLY ONE (14:53)
[2017-05-30] MEDS: PANTOPRAZOLE SODIUM 40 MG VIAL IV PUSH SCH (15:00)
[2017-05-30] MEDS ORDERED: DO NOT ADM ANY ANTICOAGULANT DRUGS PRN (15:00)
[2017-05-30] MEDS ORDERED: CALCIUM CARBONATE 500 MG CHEWABLE TAB PO PRN (15:00)
[2017-05-30] MEDS: MORPHINE SULFATE 30 MG/30 ML PCA IV SCH (15:26)
[2017-05-30 20:00] VITALS: BP 107/59; PULSE 106; RESP 22; TEMP 98; O2SAT 94
[2017-05-30 20:32] VITALS: RESP 18
[2017-05-30] MEDS: PCA - TOTAL MG MORPHINE DELIVERED PER SHIFT SCH (20:33)
[2017-05-30] MEDS: CLINDAMYCIN INJ 600 MG in SODIUM CHLORIDE 0.9% INJ 100 ML IV SCH (21:45)
[2017-05-30] MEDS: SODIUM CHLORIDE 0.9% FLUSH 10 ML FLUSH IV FLUSH SCH (21:46)
[2017-05-31] VITALS (8 sets, daily range): BP systolic 109–133; BP diastolic 53–81; PULSE 92–129; RESP 17–19; TEMP 98.2–100.4; O2SAT 90–94
[2017-05-31] MEDS: SODIUM CHLOR 0.9% 1000 ML INJ 1,000 ML IV SCH ×3 (00:45→18:15)
[2017-05-31] MEDS: CLINDAMYCIN INJ 600 MG in SODIUM CHLORIDE 0.9% INJ 100 ML IV SCH ×2 (04:00→13:24)
[2017-05-31 06:09] LABS: BASOPHIL % 0.1 % (0.0-2.0); HEMATOCRIT 39.2 % (35.0-46.0); LYMPH % 8.8 % (9.0-44.0); LYMPHOCYTE # 1.3 TH/MM3 (1.0-4.8); MEAN CELL VOLUME 87.4 FL (80.0-100.0); MEAN CORPUSCULAR HEMOGLOBIN 29.1 PG (27.0-34.0); MEAN CORPUSCULAR HGB CONC 33.3 % (32.0-36.0); MEAN PLATELET VOLUME 9.6 FL (7.0-11.0); MONO % 5.8 % (0.0-8.0); MONOCYTE # 0.9 TH/MM3 (0-0.9); NEUT % 85.3 % (16.0-70.0); PLATELET COUNT 313 TH/MM3 (150-450); RED BLOOD COUNT 4.49 MIL/MM3 (4.00-5.30); RED CELL DISTRIBUTION WIDTH 14.6 % (11.6-17.2); WHITE BLOOD COUNT 15.3 TH/MM3 (4.0-11.0)
[2017-05-31] MEDS: PCA - TOTAL MG MORPHINE DELIVERED PER SHIFT SCH ×3 (06:12→22:00)
[2017-05-31 06:34] LABS: BICARBONATE 26.2 MEQ/L (21.0-32.0); CALCIUM 8.8 MG/DL (8.5-10.1); CREATININE 0.7 MG/DL (0.50-1.00)
[2017-05-31] MEDS: SODIUM CHLORIDE 0.9% FLUSH 10 ML FLUSH IV FLUSH SCH ×2 (08:07→20:54)
[2017-05-31] MEDS ORDERED: DEXTROSE 50% IN WATER 50 ML VIAL(D50) IV PUSH PRN (09:45)
[2017-05-31] MEDS ORDERED: GLUCAGON 1 MG/ML VIAL OTHER PRN (09:45)
--- NOTE | 2017-05-31 12:24 | HHI.PR ---
Subjective Subjective Notes Still having some abdominal pain, denies nausea or vomiting. No flatus. Reports feeling 'gassy' Tolerating water ok Objective Vitals/I&O Vital Signs Date Time Temp Pulse Resp B/P (MAP) Pulse Ox O2 Delivery O2 Flow Rate FiO2 05/31/17 12:00 98.2 94 17 129/66 (87) 94 05/30/17 20:32 Nasal Cannula 2.00 Labs Laboratory Tests Test 05/31/17 05:10 White Blood Count 15.3 Red Blood Count 4.49 Hemoglobin 13.0 Hematocrit 39.2 Mean Corpuscular Volume 87.4 Mean Corpuscular Hemoglobin 29.1 Mean Corpuscular Hemoglobin Concent 33.3 Red Cell Distribution Width 14.6 Platelet Count 313 Mean Platelet Volume 9.6 Neutrophils (%) (Auto) 85.3 Lymphocytes (%) (Auto) 8.8 Monocytes (%) (Auto) 5.8 Eosinophils (%) (Auto) 0.0 Basophils (%) (Auto) 0.1 Neutrophils # (Auto) 13.0 Lymphocytes # (Auto) 1.3 Monocytes # (Auto) 0.9 Eosinophils # (Auto) 0.0 Basophils # (Auto) 0.0 CBC Comment DIFF FINAL Differential Comment Blood Urea Nitrogen 10 Creatinine 0.70 Random Glucose 137 Calcium Level 8.8 Sodium Level 140 Potassium Level 3.9 Chloride Level 105 Carbon Dioxide Level 26.2 Anion Gap 9 Estimat Glomerular Filtration Rate 89 Cardiovascular: Regular Lungs: Rhonchi (RML) Abdomen: Post-op tenderness Extremities: Perfused Wound Wound : Wound Location: Abdomen Appearance: Clean & Dry A/P Assessment and Plan 47yo F with recent gastric bypass and SBO with lysis of adhesions -Abdominal binder for comfort, continue [employer] for now -Add levsin and simethicone for gas, continue with frequent ambulation, at least QID -Can have water by mouth only, no clears as of yet at least 30ml Q 30min but can increase as tolerated -Repeat CBC in AM The exam, history, and the medical decision-making described in the above note were completed with the assistance of the mid-level provider. I reviewed and agree with the findings presented. I attest that I had a [id number] encounter with the patient on the same day, and personally performed and documented my assessment and findings in the medical record. Discharge Planning Depending on hospital course Romeo Mullins May 31, 2017 12:24 Wilmar Denney MD June 25, 2017 16:27
[2017-05-31] MEDS ORDERED: HYOSCYAMINE SOLN 0.125 MG/ML 15 ML BTL PO PRN (12:45)
[2017-05-31] MEDS: SIMETHICONE 80 MG CHEWABLE TAB CHEW PRN (13:23)
[2017-05-31] MEDS: PANTOPRAZOLE SODIUM 40 MG VIAL IV PUSH SCH (13:23)
[2017-05-31] MEDS: ENOXAPARIN SODIUM 40 MG/0.4 ML SYRINGE SQ SCH (13:24)
[2017-05-31] MEDS: METOCLOPRAMIDE HCL 10 MG/2 ML VIAL IV PUSH SCH ×2 (13:25→20:54)
[2017-05-31] MEDS: ACETAMINOPHEN 325MG/HYDROcodone 7.5MG/15ML UDC PO PRN ×2 (16:58→23:29)
[2017-05-31] MEDS: OXcarbazepine 300 MG TAB PO SCH (20:54)
[2017-06-01] VITALS: BP 125/84; PULSE 125; RESP 19; TEMP 98.6; O2SAT 95
[2017-06-01 04:00] VITALS: BP 120/89; PULSE 109; RESP 19; TEMP 98.1; O2SAT 99
[2017-06-01 04:57] LABS: HEMATOCRIT 39.1 % (35.0-46.0); HEMOGLOBIN 12.9 GM/DL (11.6-15.3); MEAN CELL VOLUME 88.9 FL (80.0-100.0); MEAN CORPUSCULAR HEMOGLOBIN 29.3 PG (27.0-34.0); MEAN CORPUSCULAR HGB CONC 32.9 % (32.0-36.0); MEAN PLATELET VOLUME 9.3 FL (7.0-11.0); PLATELET COUNT 270 TH/MM3 (150-450); RED CELL DISTRIBUTION WIDTH 14.9 % (11.6-17.2)
[2017-06-01] MEDS: LEVOTHYROXINE SODIUM 100 MCG TAB PO SCH (05:28)
[2017-06-01] MEDS: METOCLOPRAMIDE HCL 10 MG/2 ML VIAL IV PUSH SCH ×3 (05:29→20:15)
[2017-06-01] MEDS: ACETAMINOPHEN 325MG/HYDROcodone 7.5MG/15ML UDC PO PRN ×3 (05:29→16:10)
[2017-06-01] MEDS: PCA - TOTAL MG MORPHINE DELIVERED PER SHIFT SCH ×3 (06:00→20:15)
[2017-06-01 08:00] VITALS: BP 131/73; PULSE 100; RESP 18; TEMP 98; O2SAT 93
[2017-06-01] MEDS: LISINOPRIL 20 MG TAB PO SCH (08:40)
[2017-06-01] MEDS: OXcarbazepine 300 MG TAB PO SCH ×2 (08:40→20:13)
[2017-06-01] MEDS: DULoxetine HCl DR 30 MG CAP PO SCH (08:40)
[2017-06-01] MEDS: SODIUM CHLORIDE 0.9% FLUSH 10 ML FLUSH IV FLUSH SCH ×2 (08:40→20:14)
[2017-06-01] MEDS ORDERED: LEVOTHYROXINE 100 MCG PO SCH (09:00)
--- NOTE | 2017-06-01 10:51 | RADRPT ---
EXAM DATE/TIME: 06/01/2017 10:03 [place] COMPARISON: No previous studies available for comparison. INDICATIONS : Shortness of breath and fever. MEDICAL HISTORY : None. SURGICAL HISTORY : None. ENCOUNTER: Initial ACUITY: 1 day PAIN SCORE: 0/10 LOCATION: Bilateral chest FINDINGS: A single view of the chest demonstrates the lungs to be symmetrically aerated and focal airspace disease laterally in the left base. Lungs otherwise clear. Heart size is normal. Osseous structures a re intact. CONCLUSION: Isolated airspace disease laterally in the left base could represent atelectasis or early infilt rate. Nils Edward MD on June 01, 2017 at 10:48 Board Certified Radiologist. This report was verified electronically.
[2017-06-01] MEDS: metroNIDAZOLE 500 MG INJ 100 ML IV SCH ×2 (11:44→16:01)
--- NOTE | 2017-06-01 11:54 | HHI.PR ---
Subjective Subjective Notes Still complaining of gas and belly pain, more so in LUQ. Tolerating at least 60ml of fluids every 30 min and is ambulating halls. WBC up to 19. CXR shows possible left atelectasis vs. early infiltrate Objective Vitals/I&O Vital Signs Date Time Temp Pulse Resp B/P (MAP) Pulse Ox O2 Delivery O2 Flow Rate FiO2 06/01/17 08:00 98.0 100 18 131/73 (92) 93 05/31/17 20:19 21 05/30/17 20:32 Nasal Cannula 2.00 Labs Laboratory Tests Test 06/01/17 04:35 White Blood Count 19.0 Red Blood Count 4.40 Hemoglobin 12.9 Hematocrit 39.1 Mean Corpuscular Volume 88.9 Mean Corpuscular Hemoglobin 29.3 Mean Corpuscular Hemoglobin Concent 32.9 Red Cell Distribution Width 14.9 Platelet Count 270 Mean Platelet Volume 9.3 Radiology Last Impressions Chest X-Ray 06/01/17 0000 Signed Impressions: Service Date/Time: Thursday, June 01, 2017 10:03 - CONCLUSION: Isolated airspace disease laterally in the left base could represent atelectasis or early infiltrate. Nils Edward MD Abdomen: Post-op tenderness Extremities: Perfused Wound Wound : Wound Location: Abdomen Appearance: Clean & Dry A/P Assessment and Plan 47yo F with recent gastric bypass and SBO with lysis of adhesions -Start Flagyl and Levaquin -Repeat CBC, BMP, Mg in AM -Continue with water only by mouth -IS Q1H, continue frequent ambulation The exam, history, and the medical decision-making described in the above note were completed with the assistance of the mid-level provider. I reviewed and agree with the findings presented. I attest that I had a [id number] encounter with the patient on the same day, and personally performed and documented my assessment and findings in the medical record. Discharge Planning Depending on hospital course Romeo Mullins Jun 01, 2017 11:54 Wilmar Denney MD June 25, 2017 16:27
[2017-06-01 12:00] VITALS: BP 148/70; PULSE 105; RESP 18; TEMP 98.3; O2SAT 94
[2017-06-01] MEDS: ENOXAPARIN SODIUM 40 MG/0.4 ML SYRINGE SQ SCH (12:35)
[2017-06-01] MEDS: LEVOFLOXACIN 750 MG PREMIX INJ 150 ML IV SCH (12:37)
[2017-06-01 16:00] VITALS: BP 109/59; PULSE 108; RESP 18; TEMP 97.6; O2SAT 93
[2017-06-01] MEDS: PANTOPRAZOLE SODIUM 40 MG VIAL IV PUSH SCH (16:02)
[2017-06-01] MEDS: SODIUM CHLOR 0.9% 1000 ML INJ 1,000 ML IV SCH ×2 (16:02→16:30)
[2017-06-01 20:00] VITALS: BP 118/63; PULSE 103; RESP 20; TEMP 98.3; O2SAT 94
[2017-06-02] VITALS: BP 116/65; PULSE 114; RESP 20; TEMP 99.4; O2SAT 93
[2017-06-02] MEDS: ACETAMINOPHEN 325MG/HYDROcodone 7.5MG/15ML UDC PO PRN ×4 (00:05→17:50)
[2017-06-02] MEDS: metroNIDAZOLE 500 MG INJ 100 ML IV SCH ×3 (02:07→17:48)
[2017-06-02] MEDS: SODIUM CHLOR 0.9% 1000 ML INJ 1,000 ML IV SCH ×2 (02:07→12:36)
[2017-06-02 04:00] VITALS: BP 112/56; PULSE 95; RESP 18; TEMP 98.4; O2SAT 93
[2017-06-02] MEDS: LEVOTHYROXINE SODIUM 100 MCG TAB PO SCH (05:50)
[2017-06-02] MEDS: METOCLOPRAMIDE HCL 10 MG/2 ML VIAL IV PUSH SCH ×3 (05:51→20:16)
[2017-06-02] MEDS: PCA - TOTAL MG MORPHINE DELIVERED PER SHIFT SCH ×2 (05:52→15:10)
[2017-06-02 08:00] VITALS: BP 135/69; PULSE 84; RESP 16; TEMP 97.9; O2SAT 93
[2017-06-02] MEDS: SODIUM CHLORIDE 0.9% FLUSH 10 ML FLUSH IV FLUSH SCH ×2 (08:33→20:16)
[2017-06-02] MEDS: OXcarbazepine 300 MG TAB PO SCH ×2 (08:37→20:16)
[2017-06-02] MEDS: DULoxetine HCl DR 30 MG CAP PO SCH (08:37)
[2017-06-02] MEDS: DULoxetine HCl DR 20 MG CAP PO SCH (08:37)
[2017-06-02] MEDS: LISINOPRIL 20 MG TAB PO SCH (08:37)
[2017-06-02 08:41] LABS: HEMOGLOBIN 11.3 GM/DL (11.6-15.3); MEAN CELL VOLUME 87.7 FL (80.0-100.0); MEAN CORPUSCULAR HEMOGLOBIN 29.2 PG (27.0-34.0); MEAN CORPUSCULAR HGB CONC 33.4 % (32.0-36.0); MEAN PLATELET VOLUME 9.6 FL (7.0-11.0); PLATELET COUNT 238 TH/MM3 (150-450); RED BLOOD COUNT 3.88 MIL/MM3 (4.00-5.30); WHITE BLOOD COUNT 10.3 TH/MM3 (4.0-11.0)
[2017-06-02 09:05] LABS: CALCIUM 8.8 MG/DL (8.5-10.1); CREATININE 0.59 MG/DL (0.50-1.00); MAGNESIUM 1.6 MG/DL (1.5-2.5)
[2017-06-02] MEDS: LEVOFLOXACIN 750 MG PREMIX INJ 150 ML IV SCH (11:06)
[2017-06-02 12:00] VITALS: BP 136/71; PULSE 87; RESP 17; TEMP 97.7; O2SAT 94
[2017-06-02] MEDS: MORPHINE SULFATE 30 MG/30 ML PCA IV SCH (15:10)
[2017-06-02] MEDS: ENOXAPARIN SODIUM 40 MG/0.4 ML SYRINGE SQ SCH (15:13)
[2017-06-02] MEDS: PANTOPRAZOLE SODIUM 40 MG VIAL IV PUSH SCH (15:14)
[2017-06-02 16:00] VITALS: BP 126/71; PULSE 87; RESP 17; TEMP 97.9; O2SAT 93
--- NOTE | 2017-06-02 16:46 | HHI.PR ---
Subjective Subjective Notes Improving slowly Objective Vitals/I&O Vital Signs Date Time Temp Pulse Resp B/P (MAP) Pulse Ox O2 Delivery O2 Flow Rate FiO2 06/02/17 15:10 18 06/02/17 12:00 97.7 87 136/71 (92) 94 05/31/17 20:19 21 05/30/17 20:32 Nasal Cannula 2.00 Labs Laboratory Tests Test 06/02/17 07:33 White Blood Count 10.3 Red Blood Count 3.88 Hemoglobin 11.3 Hematocrit 34.0 Mean Corpuscular Volume 87.7 Mean Corpuscular Hemoglobin 29.2 Mean Corpuscular Hemoglobin Concent 33.4 Red Cell Distribution Width 15.0 Platelet Count 238 Mean Platelet Volume 9.6 Blood Urea Nitrogen 4 Creatinine 0.59 Random Glucose 96 Calcium Level 8.8 Magnesium Level 1.6 Sodium Level 142 Potassium Level 3.2 Chloride Level 109 Carbon Dioxide Level 25.0 Anion Gap 8 Estimat Glomerular Filtration Rate 108 Radiology Last Impressions Chest X-Ray 06/01/17 0000 Signed Impressions: Service Date/Time: Thursday, June 01, 2017 10:03 - CONCLUSION: Isolated airspace disease laterally in the left base could represent atelectasis or early infiltrate. Nils Edward MD Abdomen: Post-op tenderness Extremities: Perfused Wound Wound : Wound Location: Abdomen Appearance: Clean & Dry A/P Assessment and Plan 47yo F with recent gastric bypass and SBO with lysis of adhesions -CBC improved, no temps overnight -Transition to clear liquids -D/C [employer] This patient was examined by Dr. Denney and this note was dictated on his behalf The exam, history, and the medical decision-making described in the above note were completed with the assistance of the mid-level provider. I reviewed and agree with the findings presented. I attest that I had a [id number] encounter with the patient on the same day, and personally performed and documented my assessment and findings in the medical record. Discharge Planning Depending on hospital course, hopefully tomorrow Romeo Mullins [facility] Jun 02, 2017 16:46 Wilmar Denney MD June 25, 2017 16:42
[2017-06-02] MEDS: POTASSIUM CHLOR 20 MEQ PREMIX 100 ML IV SCH ×2 (17:48→20:16)
[2017-06-02 20:14] VITALS: BP 131/77; PULSE 81; RESP 16; TEMP 97.4; O2SAT 94
[2017-06-03] MEDS: metroNIDAZOLE 500 MG INJ 100 ML IV SCH ×3 (01:05→17:55)
[2017-06-03] MEDS: SODIUM CHLOR 0.9% 1000 ML INJ 1,000 ML IV SCH ×3 (01:05→14:18)
[2017-06-03] MEDS: ACETAMINOPHEN 325MG/HYDROcodone 7.5MG/15ML UDC PO PRN ×4 (01:06→20:08)
[2017-06-03] MEDS: LEVOTHYROXINE SODIUM 100 MCG TAB PO SCH (05:40)
[2017-06-03] MEDS: METOCLOPRAMIDE HCL 10 MG/2 ML VIAL IV PUSH SCH ×3 (05:41→20:00)
[2017-06-03 07:24] VITALS: BP 135/74; PULSE 80; RESP 17; TEMP 98; O2SAT 96
--- NOTE | 2017-06-03 08:32 | HHI.PR ---
Subjective Subjective Notes Still having abdominal discomfort Tolerating clears Objective Vitals/I&O Vital Signs Date Time Temp Pulse Resp B/P (MAP) Pulse Ox O2 Delivery O2 Flow Rate FiO2 06/03/17 07:24 98.0 80 17 135/74 (94) 96 05/31/17 20:19 21 05/30/17 20:32 Nasal Cannula 2.00 Radiology Last Impressions Chest X-Ray 06/01/17 0000 Signed Impressions: Service Date/Time: Thursday, June 01, 2017 10:03 - CONCLUSION: Isolated airspace disease laterally in the left base could represent atelectasis or early infiltrate. Nils Edward MD Abdomen: Post-op tenderness (most tender to epigastrum. mild distension ) Extremities: Perfused Wound Wound : Wound Location: Abdomen Appearance: Clean & Dry A/P Assessment and Plan 47yo F with recent gastric bypass and SBO with lysis of adhesions -GIve MoM and simethicone for constipation and gas retention -Continue with frequent ambulation -Would like patient to pass gas before d/c The exam, history, and the medical decision-making described in the above note were completed with the assistance of the mid-level provider. I reviewed and agree with the findings presented. I attest that I had a ftzw-[id number]-usak encounter with the patient on the same day, and personally performed and documented my assessment and findings in the medical record. Discharge Planning Depending on hospital course, hopefully tomorrow Romeo Mullins Jun 03, 2017 08:32 Wilmar Denney MD June 25, 2017 16:43
[2017-06-03] MEDS: SIMETHICONE 80 MG CHEWABLE TAB CHEW PRN ×2 (08:34→20:06)
[2017-06-03] MEDS: SODIUM CHLORIDE 0.9% FLUSH 10 ML FLUSH IV FLUSH SCH ×2 (08:38→20:00)
[2017-06-03] MEDS: DULoxetine HCl DR 30 MG CAP PO SCH (08:38)
[2017-06-03] MEDS: LISINOPRIL 20 MG TAB PO SCH (08:38)
[2017-06-03] MEDS: OXcarbazepine 300 MG TAB PO SCH ×2 (08:38→20:00)
[2017-06-03 11:30] VITALS: BP 127/66; PULSE 79; RESP 18; TEMP 97.9; O2SAT 95
[2017-06-03] MEDS: LEVOFLOXACIN 750 MG PREMIX INJ 150 ML IV SCH (11:59)
[2017-06-03] MEDS: ENOXAPARIN SODIUM 40 MG/0.4 ML SYRINGE SQ SCH (13:55)
[2017-06-03] MEDS: PANTOPRAZOLE SODIUM 40 MG VIAL IV PUSH SCH (13:55)
[2017-06-03 16:00] VITALS: BP 119/65; PULSE 65; RESP 17; TEMP 97.5; O2SAT 95
[2017-06-03 19:53] VITALS: BP 118/60; PULSE 82; RESP 17; TEMP 98.1; O2SAT 95
[2017-06-04] VITALS: BP 122/68; PULSE 74; RESP 17; TEMP 97.7; O2SAT 94
[2017-06-04] MEDS: metroNIDAZOLE 500 MG INJ 100 ML IV SCH ×2 (02:37→09:18)
[2017-06-04] MEDS: SODIUM CHLOR 0.9% 1000 ML INJ 1,000 ML IV SCH ×2 (02:37→14:30)
[2017-06-04] MEDS: METOCLOPRAMIDE HCL 10 MG/2 ML VIAL IV PUSH SCH ×2 (05:40→13:11)
[2017-06-04] MEDS: LEVOTHYROXINE SODIUM 100 MCG TAB PO SCH (05:40)
[2017-06-04 07:10] VITALS: BP 134/75; PULSE 73; RESP 17; TEMP 98.1; O2SAT 97
[2017-06-04] MEDS: SODIUM CHLORIDE 0.9% FLUSH 10 ML FLUSH IV FLUSH SCH (09:00)
[2017-06-04] MEDS: DULoxetine HCl DR 30 MG CAP PO SCH (09:17)
[2017-06-04] MEDS: OXcarbazepine 300 MG TAB PO SCH (09:17)
[2017-06-04] MEDS: LISINOPRIL 20 MG TAB PO SCH (09:17)
[2017-06-04] MEDS: ACETAMINOPHEN 325MG/HYDROcodone 7.5MG/15ML UDC PO PRN (09:18)
[2017-06-04] MEDS: DULoxetine HCl DR 20 MG CAP PO SCH (09:21)
[2017-06-04] MEDS: LEVOFLOXACIN 750 MG PREMIX INJ 150 ML IV SCH (11:26)
--- NOTE | 2017-06-04 11:57 | HHI.PR ---
Subjective Subjective Notes Feels much better Pain improving + flatus Objective Vitals/I&O Vital Signs Date Time Temp Pulse Resp B/P (MAP) Pulse Ox O2 Delivery O2 Flow Rate FiO2 06/04/17 07:10 98.1 73 17 134/75 (94) 97 05/31/17 20:19 21 Radiology Last Impressions Chest X-Ray 06/01/17 0000 Signed Impressions: Service Date/Time: Thursday, June 01, 2017 10:03 - CONCLUSION: Isolated airspace disease laterally in the left base could represent atelectasis or early infiltrate. Nils Edward MD Cardiovascular: Regular Lungs: Clear Abdomen: Post-op tenderness Extremities: Perfused Wound Wound : Wound Location: Abdomen Appearance: Clean & Dry A/P Assessment and Plan 47yo F with recent gastric bypass and SBO with lysis of adhesions -Transition to full liquids, if tolerates can d/c home -Continue frequent ambulation The exam, history, and the medical decision-making described in the above note were completed with the assistance of the mid-level provider. I reviewed and agree with the findings presented. I attest that I had a [id number]-[id number] encounter with the patient on the same day, and personally performed and documented my assessment and findings in the medical record. Discharge Planning Depending on hospital course, hopefully today Romeo Mullins Jun 04, 2017 11:57 Wilmar Denney MD June 25, 2017 16:44
[2017-06-04] MEDS ORDERED: KETO10 PO (11:59)
[2017-06-04 12:00] VITALS: BP 146/80; PULSE 69; RESP 20; TEMP 97.6; O2SAT 98
[2017-06-04] MEDS: ENOXAPARIN SODIUM 40 MG/0.4 ML SYRINGE SQ SCH (13:11)
--- NOTE | 2017-07-06 10:49 | HHI.DS ---
Discharge Summary Admission Date May 30, 2017 at 15:59 Discharge Date: Jun 04, 2017 Admitting Diagnosis SBO, Post op gastric bypass Procedures small bowel anastomosis with lysis of adhesions Brief History Ms. Muller is a 47yo female who was transferred to [facility] due to intractable abdominal pain. She recently underwent gastric bypass for obesity on 05/19/17 and had a normal post-operative course from there. She states she was trying to consume a certain amount of protein and noticed the pain after eating. It was accompanied with nausea and vomiting, which caused her to present to her local emergency room. Dr. Denney was consulted and the patient was transferred for care. Significant Findings Last Impressions Chest X-Ray 06/01/17 0000 Signed Impressions: Service Date/Time: Thursday, June 01, 2017 10:03 - CONCLUSION: Isolated airspace disease laterally in the left base could represent atelectasis or early infiltrate. Nils Edward MD PE at Discharge GENERAL: in no acute distress CARDIOVASCULAR: Regular rate and rhythm. RESPIRATORY: No accessory muscle use. Clear to auscultation. Breath sounds equal bilaterally. GASTROINTESTINAL: Abdomen soft, post-operative tenderness. Hospital Course The patient underwent laparoscopic small bowel anastomosis with lysis of adhesions. Her pain was somewhat difficult to control so the patient had a longer hospital stay. By the time of discharge she was able to tolerate soft foods and pain was well controlled. She had no nausea or vomiting and was able to have regular bowel movements. Pt Condition on Discharge: Stable Discharge Disposition: Discharge Home Discharge Instructions DIET: Follow Instructions for: Bariatric Surgery Diet Additional Diet Instructions: Clears x 1 week Then purree Activities you can perform: Shower Only-No Bath Activities to Avoid: Strenuous Activity New Medications: Ketorolac (Ketorolac) 10 Mg Tab 10 MG PO Q6HR PRN for PAIN for 5 Days, TAB 0 Refills Continued Medications: Allopurinol (Allopurinol) 100 Mg Tab 100 MG PO DAILY for Gout, #30 TAB 0 Refills Atorvastatin (Atorvastatin) 40 Mg Tab 40 MG PO HS for Cholesterol Management, #30 TAB [address] (Cymbalta DR) 30 Mg Capdr 30 MG PO DAILY, #30 CAP [address] (Cymbalta DR) 20 Mg Capdr 20 MG PO EVERY OTHER DAY, #30 CAP 0 Refills Levothyroxine (Bulk) (L-Thyroxine (Bulk)) Bulk Pow 100 MCG PO DAILY Linaclotide (Linzess) 145 Mcg Cap 145 MCG PO DAILY, CAP 0 Refills Lisinopril (Lisinopril) 20 Mg Tab 20 MG PO DAILY, #30 TAB 0 Refills Niacin (Niacin) 500 Mg Tab 500 MG PO DAILY for Cholesterol Management, #30 TAB 0 Refills [place]-3 Fatty Acids (Fish Oil) 340 Mg-1,000 Mg Cap 1 CAP PO HS Oxcarbazepine (Trileptal) 300 Mg Tab 300 MG PO BID for Seizure Control, #60 TAB 0 Refills Pantoprazole (Protonix) 40 Mg Tab 40 MG PO DAILY for Reflux, #30 TAB 0 Refills Additional Information This patient was examined by Dr. Denney and this note was dictated on his behalf Romeo Mullins July 06, 2017 10:49
--- NOTE | 2017-07-19 07:48 | MH ---
cc: Wilmar eDnney MD DATE OF ADMISSION: 05/30/2017 HISTORY OF PRESENT ILLNESS: This is a patient who has a history of a laparoscopic Bao-en-Y gastric bypass on 05/19/2017. She was doing well until last evening, where she began experiencing increased abdominal pain, nausea and vomiting. The patient presented to [facility], where she was found to have findings of a bowel obstruction on CAT scan. She was transferred to [facility] for further management. The patient complains of abdominal pain. No chest pains, no shortness of breath, no fevers. After the last meal last evening, she began experiencing increase in pain with vomiting. The patient that she is not passing gas. PAST MEDICAL HISTORY: Significant for hypercholesterolemia, depression, type 2 diabetes. PAST SURGICAL HISTORY: Significant for above, as well as D and C. SOCIAL HISTORY: The patient drinks alcohol occasionally. MEDICATIONS: She is on medications at home that could be obtained from the medical record. ALLERGIES: CEPHALEXIN. REVIEW OF SYSTEMS: Significant for above. All other review negative. PHYSICAL EXAMINATION: GENERAL: She is lying on a stretcher in distress secondary to pain. HEENT: Pupils are equal and reactive. NECK: Trachea is midline. Neck without JVD LUNGS: Respiration clear. HEART: Regular. GASTROINTESTINAL: Soft, positive tenderness in the epigastrium. MUSCULOSKELETAL: No deformities. NEUROLOGIC: Nonfocal. IMAGING: The patient's CAT scan was reviewed, reveals dilated Bao limb down to the JJ. ASSESSMENT AND PLAN: This is a patient who is 1 week post-gastric bypass with obstruction, likely at the jejunojejunostomy. We will take the patient to the operating room for laparoscopy, possible revision of her jejunojejunostomy. Risks and benefits explained to the patient and her to include, but not be exclusive to, infection, bleeding, bowel injury, solid organ injury technical aspects explained, as well as kodak and postoperative course. The patient verbalized understanding. Consent was obtained. MD MIKE Acosta/NAHUM , 05:14 PM , 06:04 PM
--- NOTE | 2017-07-19 14:21 | MP ---
cc: Wilmar Denney MD DATE OF OPERATION: 05/30/2017 PREOPERATIVE DIAGNOSIS: Bowel obstruction. POSTOPERATIVE DIAGNOSIS: Bowel obstruction. PROCEDURE PERFORMED: Laparoscopy with enteroenterostomy. SURGEON: Wilmar Denney MD ANESTHESIA: General endotracheal anesthesia. ESTIMATED BLOOD LOSS: Scant. FINDINGS: The patient had some adhesions at her jejunojejunostomy that contributed to a partial occlusion. Her Bao limb was significantly distended with what appeared to be food content within it. As a result, it was decided to bypass her original jejunojejunostomy to help with decompression. SPECIMENS: None. COMPLICATIONS: None. DESCRIPTION OF PROCEDURE: The patient was brought to the operating room, placed on the operating table in supine position. Bilateral sequential inflation device placed on lower extremities. General anesthesia instituted. Broussard catheter placed. Antibiotics initiated. A Broussard catheter placed. The abdomen was prepped and draped sterilely. All incisions were anesthetized with 0.25% Marcaine with epinephrine. Skin incisions were made through the old scars. A 5 mm port was placed under direct vision in the epigastric port, pneumoperitoneum was created. Under direct vision, 5 mm left upper quadrant, 12 mm left upper quadrant, 12 mm right upper quadrant and 5 mm right upper quadrant ports were placed. Prior to placement of all ports, the skin and peritoneum were anesthetized with 0.25% Marcaine with epinephrine. The abdominal cavity was inspected. Findings were as above. Adhesions at the jejunojejunostomy were using the Harmonic scalpel, as the Bao limb was distended and filled with food content. It was decided to bypass the original jejunojejunostomy. Area proximal to the jejunojejunostomy and distal was identified along the Bao limb and the common channel. Enterotomy was created in this region. A [id number]-[id number] staple anastomosis was created in the usual manner. The mesenteric defect in this region closed with 2-0 silk suture in a running manner. Following this, the operative field was inspected and hemostasis assured. The CO2 was released. All ports were removed. All skin incisions closed with 4-0 Monocryl. The abdominal wall was clean and a sterile dressing placed. The patient was awakened and taken to the recovery room. MD MIKE Acosta/NAHUM , 05:19 PM , 06:37 PM
== END 2017-06-04 15:45 | disposition home or self-care (01) | DRG 331 ==
LOC: NEPC 10:14 → NEDA 15:59 → N07B 16:01
PROVIDERS: ADMIT Surgery; ATTEND Surgery
PROC: 0DQV4ZZ Repair Mesentery, Percutaneous Endoscopic Approach (ICD-10-PCS; 2017-05-30)
PROC: 0D1A4ZA Bypass Jejunum to Jejunum, Percutaneous Endoscopic Approach (ICD-10-PCS; principal; 2017-05-30 12:13)
DX: K56.699 Other intestinal obstruction unspecified as to partial versus complete obstruction (principal); E66.9 Obesity, unspecified; I10 Essential (primary) hypertension; K56.51 Intestinal adhesions [bands], with partial obstruction; E11.9 Type 2 diabetes mellitus without complications; E78.00 Pure hypercholesterolemia, unspecified; K21.9 Gastro-esophageal reflux disease without esophagitis; K22.70 Barrett's esophagus without dysplasia; G47.30 Sleep apnea, unspecified; E07.9 Disorder of thyroid, unspecified; M10.9 Gout, unspecified; F32.9 Major depressive disorder, single episode, unspecified; F41.9 Anxiety disorder, unspecified; K59.00 Constipation, unspecified; Z98.84 Bariatric surgery status; Z68.36 Body mass index [BMI] 36.0-36.9, adult
CPT/HCPCS: 71045; 80048; 82948; 83735; 85025; 85027; 94150; 96361; 96374; C9113; J0330; J1100; J1170; J1650; J1956; J2175; J2270; J2405; J2710; J2765; J3010; J3480; J7030; J7120